=== PATIENT | male | born 1955 | race Caucasian/White ===

== ENCOUNTER 2018-08-27 21:12 | Emergency (ER) | payer BC, OTHER ==
[~2018-08-27] VITALS: Ht 170.2 cm; Wt 95.2 kg
[~2018-08-27 21:12] MED LIST: CIPR500 PO; Flomax0.4 MG PO; Norco 5-325 Ta1 EACH PO; OXYACE5T PO; PROM25 PO; RXOXYACE PO
[2018-08-27 21:57] LABS: BASOPHILS ABSOLUTE AUTO 0.03 K/mm3 (0.00-0.23); BASOPHILS PERCENT AUTO 0 % (0-2); EOSINOPHILS ABSOLUTE AUTO 0.08 K/mm3 (0.00-0.68); EOSINOPHILS PERCENT AUTO 1 % (0-6); Hematocrit 47.9 % (37.0-53.0); Hemoglobin 16.4 g/dL (13.5-17.5); IMMATURE GRAN ABSOLUTE AUTO 0.01 K/mm3 (0.00-0.10); IMMATURE GRAN PERCENT AUTO 0 % (0-1); LYMPHOCYTES ABSOLUTE AUTO 1.66 K/mm3 (0.84-5.20); LYMPHOCYTES PERCENT AUTO 25 % (21-46); MONOCYTES ABSOLUTE AUTO 0.52 K/mm3 (0.16-1.47); MONOCYTES PERCENT AUTO 8 % (4-13); Mean Corpuscular HGB 32.7 pg (26.0-34.0); Mean Corpuscular HGB Conc 34.2 g/dL (31.5-36.5); Mean Corpuscular Volume 95 fL (80-100); NEUTROPHILS ABSOLUTE AUTO 4.44 K/mm3 (1.96-9.15); NEUTROPHILS PERCENT AUTO 66 % (41-73); Platelet Count 261 K/mm3 (150-400); RDW Standard Deviation 42.4 fL (35.1-46.3); Red Blood Cell Count 5.02 M/mm3 (4.30-5.90); White Blood Cell Count 6.74 K/mm3 (4.00-11.30)
[2018-08-27 22:15] LABS: Alanine Aminotransfer (ALT/SGP 35 U/L (12-78); Albumin/Globulin Ratio 1.1 (0.8-1.8); Alk Phos 101 U/L (50-136); Anion Gap 9 mmol/L (6-16); Aspartate Aminotrans (AST/SGOT 18 U/L (12-37); Bilirubin, Total 0.6 mg/dL (0.1-1.0); Blood Urea Nitrogen 20 mg/dL (8-24); Bun/Creatinine Ratio 23.9 (12.0-20.0); CO2, Blood 23 mmol/L (21-32); Calcium, Blood 8.4 mg/dL (8.5-10.1); Chloride, Blood 108 mmol/L (98-108); Creatinine, Blood 0.84 mg/dL (0.60-1.20); Globulin, Blood 3.8 g/dL (2.2-4.0); Glomerular Filtration Rate >60 (60-); Glucose, Blood 106 mg/dL (70-99); Potassium, Blood 3.8 mmol/L (3.5-5.5); Sodium, Blood 140 mmol/L (136-145); Total Protein, Blood 7.8 g/dL (6.4-8.2)
== END 2018-08-27 22:55 | disposition home or self-care (01) ==
LOC: ER 21:12
PROVIDERS: Emergency Medicine
DX: R20.2 Paresthesia of skin (principal); Z79.899 Other long term (current) drug therapy
CPT/HCPCS: 80053; 85025; 93005; 93010; 99284-25

== ENCOUNTER 2019-12-28 20:13 | Inpatient (IN) | payer BC, OTHER ==
[~2019-12-28] VITALS: Ht 170.2 cm; Wt 90.9 kg
[2019-12-28 20:49] LABS: BASOPHILS ABSOLUTE AUTO 0.02 K/mm3 (0.00-0.23); BASOPHILS PERCENT AUTO 0 % (0-2); EOSINOPHILS ABSOLUTE AUTO 0.04 K/mm3 (0.00-0.68); EOSINOPHILS PERCENT AUTO 1 % (0-6); Hematocrit 49.4 % (37.0-53.0); Hemoglobin 16.4 g/dL (13.5-17.5); IMMATURE GRAN ABSOLUTE AUTO 0.03 K/mm3 (0.00-0.10); IMMATURE GRAN PERCENT AUTO 0 % (0-1); LYMPHOCYTES ABSOLUTE AUTO 1.25 K/mm3 (0.84-5.20); LYMPHOCYTES PERCENT AUTO 15 % (21-46); MONOCYTES ABSOLUTE AUTO 0.71 K/mm3 (0.16-1.47); MONOCYTES PERCENT AUTO 8 % (4-13); Mean Corpuscular HGB 31.8 pg (26.0-34.0); Mean Corpuscular HGB Conc 33.2 g/dL (31.5-36.5); Mean Corpuscular Volume 96 fL (80-100); Mean Platelet Volume 11.6 fL (9.1-12.4); NEUTROPHILS ABSOLUTE AUTO 6.52 K/mm3 (1.96-9.15); NEUTROPHILS PERCENT AUTO 76 % (41-73); Platelet Count 243 K/mm3 (150-400); RDW Coefficient Variation 12.8 % (11.7-14.2); RDW Standard Deviation 45.7 fL (35.1-46.3); Red Blood Cell Count 5.16 M/mm3 (4.30-5.90); White Blood Cell Count 8.57 K/mm3 (4.00-11.30)
[2019-12-28 21:09] LABS: Alanine Aminotransfer (ALT/SGP 45 U/L (12-78); Albumin/Globulin Ratio 1.1 (0.8-1.8); Alk Phos 100 U/L (50-136); Anion Gap 11 mmol/L (6-16); Aspartate Aminotrans (AST/SGOT 28 U/L (12-37); Bilirubin, Total 0.5 mg/dL (0.1-1.0); Blood Urea Nitrogen 21 mg/dL (8-24); Bun/Creatinine Ratio 24.7 (12.0-20.0); CO2, Blood 23 mmol/L (21-32); Calcium, Blood 8.7 mg/dL (8.5-10.1); Chloride, Blood 105 mmol/L (98-108); Creatinine, Blood 0.85 mg/dL (0.60-1.20); Globulin, Blood 3.8 g/dL (2.2-4.0); Glomerular Filtration Rate >60 (60-); Glucose, Blood 115 mg/dL (70-99); Potassium, Blood 3.8 mmol/L (3.5-5.5); Sodium, Blood 139 mmol/L (136-145); Total Protein, Blood 7.8 g/dL (6.4-8.2); Troponin I 0.072 ng/mL (0.000-0.040)
[2019-12-28 22:37] LABS: International Normalized Ratio 0.95; Prothrombin Time Results 10.2 Sec (9.7-11.5)
[2019-12-28 23:03] LABS: Magnesium, Blood 2.6 mg/dL (1.6-2.4)
--- NOTE | 2019-12-29 01:32 | NUR ---
PATIENT IS A NEW ADMIT FROM THE ED. AXOX 4 AND SELF TRANSFER FROM [facility] TO BED. HEPARIN INFUSING FROM ED AT 20.8 ml/HR MANAGED BY PHARMACY. DENIES CHEST PAIN OR CHEST PRESSURE. TELEMETRY PLACED AND TECH REPORTS NSR W/PVC AT 87. DENIES N/V AND SOB. ON ROOM AIR. PATIENT ORIENTED TO ROOM AND CALL LIGHT SYSTEM. NPO AFTER 23:59 12/28/19. NS STARTED AT 75mL/HR. CALL LIGHT IN REACH. WILL CONTINUE TO MONITOR.
--- NOTE | 2019-12-29 02:50 | NUR ---
PATIENT SLEEPING SINCE ADMIT. NS INFUSING AT 75mL/HR. HEPARIN INFUSING AT 20.8 mL/HR. CALL LIGHT IN REACH.
[2019-12-29 02:59] LABS: BASOPHILS ABSOLUTE AUTO 0.02 K/mm3 (0.00-0.23); BASOPHILS PERCENT AUTO 0 % (0-2); EOSINOPHILS PERCENT AUTO 1 % (0-6); Hematocrit 46.5 % (37.0-53.0); Hemoglobin 15.4 g/dL (13.5-17.5); IMMATURE GRAN ABSOLUTE AUTO 0.03 K/mm3 (0.00-0.10); IMMATURE GRAN PERCENT AUTO 0 % (0-1); LYMPHOCYTES ABSOLUTE AUTO 1.87 K/mm3 (0.84-5.20); LYMPHOCYTES PERCENT AUTO 26 % (21-46); MONOCYTES ABSOLUTE AUTO 0.59 K/mm3 (0.16-1.47); MONOCYTES PERCENT AUTO 8 % (4-13); Mean Corpuscular HGB 31.9 pg (26.0-34.0); Mean Corpuscular HGB Conc 33.1 g/dL (31.5-36.5); Mean Corpuscular Volume 96 fL (80-100); Mean Platelet Volume 11.8 fL (9.1-12.4); NEUTROPHILS ABSOLUTE AUTO 4.49 K/mm3 (1.96-9.15); NEUTROPHILS PERCENT AUTO 63 % (41-73); Platelet Count 218 K/mm3 (150-400); RDW Coefficient Variation 12.8 % (11.7-14.2); RDW Standard Deviation 46.1 fL (35.1-46.3); Red Blood Cell Count 4.83 M/mm3 (4.30-5.90)
[2019-12-29 03:27] LABS: Alanine Aminotransfer (ALT/SGP 39 U/L (12-78); Albumin, Blood 3.6 g/dL (3.4-5.0); Albumin/Globulin Ratio 1.1 (0.8-1.8); Alk Phos 101 U/L (50-136); Anion Gap 6 mmol/L (6-16); Aspartate Aminotrans (AST/SGOT 27 U/L (12-37); Bilirubin, Total 0.4 mg/dL (0.1-1.0); Blood Urea Nitrogen 24 mg/dL (8-24); Bun/Creatinine Ratio 28.2 (12.0-20.0); CHOL/HDL RATIO 5.4; CO2, Blood 26 mmol/L (21-32); Calcium, Blood 8.4 mg/dL (8.5-10.1); Chloride, Blood 107 mmol/L (98-108); Cholesterol 249 mg/dL (50-200); Creatinine, Blood 0.85 mg/dL (0.60-1.20); Globulin, Blood 3.4 g/dL (2.2-4.0); Glomerular Filtration Rate >60 (60-); Glucose, Blood 131 mg/dL (70-99); HDL Cholesterol 46 mg/dL (>39); LDL/HDL RATIO 3.4; Low Density Lipoprotein Chol 156 mg/dL (0-110); Potassium, Blood 3.7 mmol/L (3.5-5.5); Sodium, Blood 139 mmol/L (136-145); Triglycerides 237 mg/dL (30-160); Very Low Density Lipoprot Chol 47 mg/dL (6-32)
--- NOTE | 2019-12-29 04:00 | NUR ---
LAB: TROPONIN 1.170 AND LAST 0.072. HOSPITALIST DR BENZ NOTIFIED AND ASKED IF PATIENT IS ON HEPARIN DRIP. HEPARIN INFUSING AT 20.8 mL/HR MANAGED BY PHARMACY. DR BENZ ASK IF PATIENT HAVING CHEST PAIN OR CHEST PRESSURE. PATIENT SLEEPING AT THIS TIME. REPORTS TO CONTINUE TO MONITOR. NPO. ANGIOGRAM IN AM.
--- NOTE | 2019-12-29 04:23 | NUR ---
SHIFT SUMMARY PATIENT HAD cH TROPONIN 1.170 UP FROM 0.072 (SEE NOTE). AXOX 4 AND INDEPENDENT IN ROOM. DENIES CHEST PAIN, CHEST PRESSURE, SOB, AND N/V. PIV REMAINS INTACT. HEPARIN INFUSING AT 20.8 mL/HR MANAGED BY PHARMACY. NPO AFTER 23:59 12/28/19. ANGIOGRAM IN AM. NS INFUSING AT 75mL/HR. AUDIOVISUAL TECH REPORTS NSR W/PVC AT 87. [place] LEAVING BILATERAL HEARING AIDES AT HOME. REPORTS HAVING A FEW DRINKS DAILY SUCH BEER AND 4-5 BEERS ON FRIDAYS WITH A COUPLE OF SHOTS. VSS/AFEBRILE. COOPERATIVE WITH CARE. CALL LIGHT IN REACH. BED IN LOWEST POSITION. WILL CONTINUE TO [place] UNTIL DAY SHIFT NURSE ASSUMES CARE.
--- NOTE | 2019-12-29 10:46 | NUR ---
PT IS A&O, INDEPENDENT IN AND TO [facility]. ADMITTED FOR NSTEMI; ON HEPARIN DRIP. DENIED CP OR CHEST PRESSURE TO PRESENT THIS SHIFT. PT NPO FOR ANGIO THIS AM. DR PIERRE HERE TO SEE PT AND RETURNED AGAIN TO TALK WITH PT AND . LAB CALLED WITH CRITICAL RESULT ON LAST TROPONIN, WHILE DR PIERRE IN WITH PT; NOTIFIED. PHARMACY CALLED TO REPORT NEW ORDERS R/T HEPARIN DRIP AND BOLUS; SEE EMAR. 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 PT TAKEN VIA W/C WITH AT SIDE.
--- NOTE | 2019-12-29 18:28 | NUR ---
SHIFT SUMMARY RECEIVED BEDSIDE REPORT FROM [facility] AND TELEPHONE REPORT FROM J[facility]. PT ORIENTED TO ROOM AND CALL LIGHT. EDUCATED RIGHT ARM ACTIVITY RESTRICTIONS. PT A&Ox4; [place]. PER TELE SINUS BETTY TO SINUS RHYTHM WITH PVC. PT SPO2 >90% ON RA. PT DENIES PAIN, CHEST PAIN/PRESSURE, NAUSEA, DIZZINESS, SOB AND NUMB/TINGLING. RIGHT RADIAL SITE WITH TR BAND IN PLACE; RECOVERING PER POLICY. NO BLEEDING, BRUISING OR HEMATOMA NOTED. ELEVATED BP. NO OTHER ACUTE CHANGES NOTED. WILL CONTINUE TO MONITOR UNITL REPORT GIVEN TO ONCOMING RN.
[2019-12-30 04:19] LABS: BASOPHILS ABSOLUTE AUTO 0.02 K/mm3 (0.00-0.23); BASOPHILS PERCENT AUTO 0 % (0-2); EOSINOPHILS ABSOLUTE AUTO 0.11 K/mm3 (0.00-0.68); EOSINOPHILS PERCENT AUTO 1 % (0-6); Hematocrit 48.8 % (37.0-53.0); Hemoglobin 16.2 g/dL (13.5-17.5); IMMATURE GRAN ABSOLUTE AUTO 0.03 K/mm3 (0.00-0.10); IMMATURE GRAN PERCENT AUTO 0 % (0-1); LYMPHOCYTES ABSOLUTE AUTO 1.68 K/mm3 (0.84-5.20); LYMPHOCYTES PERCENT AUTO 21 % (21-46); MONOCYTES ABSOLUTE AUTO 0.72 K/mm3 (0.16-1.47); MONOCYTES PERCENT AUTO 9 % (4-13); Mean Corpuscular HGB 32.1 pg (26.0-34.0); Mean Corpuscular HGB Conc 33.2 g/dL (31.5-36.5); Mean Corpuscular Volume 97 fL (80-100); Mean Platelet Volume 11.6 fL (9.1-12.4); NEUTROPHILS ABSOLUTE AUTO 5.29 K/mm3 (1.96-9.15); NEUTROPHILS PERCENT AUTO 67 % (41-73); Platelet Count 209 K/mm3 (150-400); RDW Coefficient Variation 12.8 % (11.7-14.2); RDW Standard Deviation 45.7 fL (35.1-46.3); Red Blood Cell Count 5.04 M/mm3 (4.30-5.90); White Blood Cell Count 7.85 K/mm3 (4.00-11.30)
[2019-12-30 04:48] LABS: Anion Gap 6 mmol/L (6-16); Blood Urea Nitrogen 13 mg/dL (8-24); Bun/Creatinine Ratio 15.8 (12.0-20.0); CO2, Blood 24 mmol/L (21-32); Calcium, Blood 8.6 mg/dL (8.5-10.1); Chloride, Blood 105 mmol/L (98-108); Creatinine, Blood 0.82 mg/dL (0.60-1.20); Glomerular Filtration Rate >60 (60-); Glucose, Blood 106 mg/dL (70-99); Potassium, Blood 3.9 mmol/L (3.5-5.5); Sodium, Blood 135 mmol/L (136-145)
[2019-12-30 05:23] LABS: Troponin I 0.688 ng/mL (0.000-0.040)
--- NOTE | 2019-12-30 05:43 | NUR ---
TR BAND FULLY RECOVERED, OPSITE IN PLACE AT @2030 ON 12/30/19. NO NEW BLEEDING NOTED FROM SITE. SLIGHT HEMATOMA NOTED ABOVE SIGHT. ARMBOARD IN PLACE.
--- NOTE | 2019-12-30 05:44 | NUR ---
END OF SHIFT SUMMARY NO ACUTE CHNAGES THIS SHIFT. VSS, HTN NOTED, ASYMPTOMATIC. PT DENIES CP/PRESSURE/DIAPHORRESIS, ETC. R RADIAL ACCESS SITE IS FULLY RECOVERED. NO COMPLICATIONS NOTED. ARMBOARD IN [place]CE. PT HAS BEEN RESTING QUIETLY THIS SHIFT. WILL CONTINUE TO MONITOR UNTIL SHIFT CHANGE.
[2019-12-30] MEDS ORDERED: ASPI81CH PO (11:00)
[2019-12-30] MEDS ORDERED: CLOP75 PO (11:00)
[2019-12-30] MEDS ORDERED: LIPITOR80 MG PO (11:00)
[2019-12-30] MEDS ORDERED: METO25ER PO (11:01)
[2019-12-30] MEDS ORDERED: NITR.4SL SL (11:02)
[2019-12-30] MEDS ORDERED: ENTRESTO 24 MG1 EACH PO (11:20)
--- NOTE | 2019-12-30 13:31 | NUR ---
DISCHARGE SUMMARY PT A&Ox4; CALM AND COOPERATIVE WITH CARE. PT RESTING IN BED DURING SHIFT, UP IN ROOM IND THIS AM. PT DENIES PAIN, CHEST PAIN/PRESSURE, NAUSEA, SOB, DIZZINESS AND NUMB/TINGLING. RIGHT RADIAL SITE; C/D/I, NO BLEEDING OR HEMATOMA NOTED; SMALL AMOUNT OF SHADOWING NOTED AROUND INSERTION SITE; REMAINED STABLE T/O NOC PER REPROT. VSS. DR LEMOS NOTIFIED OF BP THIS AM; PT IS OK TO GO HOME AND DR ORR NOTIFIED OK TO DISCHARGE. NO OTHER ACUTE CHANGES NOTED DURING SHIFT. PT EDUCATED ON ACTIVITY RESTRICTIONS FOR RIGHT ARM AND WHAT TO DO IF IT STARTS BLEEDING; PT EDUCATED ON [employer] CONTRACT. PT EDUCATED ON DISCHARGE INSTRUCTIONS, FOLLOW UP APPOINTMENTS, ESTABLISHING A PCP AND MEDICATIONS. MEDICATIONS CALLED INTO [facility] PER REQUEST. PT LEFT ROOM VIA WHEELCHAIR AT 1212; PT STABLE UPON DISCHARGE.
== END 2019-12-30 12:14 | disposition home or self-care (01) | DRG 247 ==
LOC: ER 20:13 → MEDS 23:42 → PCU 23:52 → MEDS 23:58 → PCU 12-29 11:39
PROVIDERS: Emergency Medicine; Internal Medicine Cardiovascular Disease; Nurse Practitioner Acute Care; Physician Assistant; ADMIT Internal Medicine
PROC: 027034Z Dilation of Coronary Artery, One Artery with Drug-eluting Intraluminal Device, Percutaneous Approach (ICD-10-PCS; principal; 2019-12-29)
PROC: 4A023N7 Measurement of Cardiac Sampling and Pressure, Left Heart, Percutaneous Approach (ICD-10-PCS; 2019-12-29)
PROC: B211YZZ Fluoroscopy of Multiple Coronary Arteries using Other Contrast (ICD-10-PCS; 2019-12-29)
DX: I21.4 Non-ST elevation (NSTEMI) myocardial infarction (principal); I25.10 Atherosclerotic heart disease of native coronary artery without angina pectoris; I25.5 Ischemic cardiomyopathy; Z20.828 Contact with and (suspected) exposure to other viral communicable diseases; F17.220 Nicotine dependence, chewing tobacco, uncomplicated; R73.03 Prediabetes; K21.9 Gastro-esophageal reflux disease without esophagitis; E66.9 Obesity, unspecified; F10.20 Alcohol dependence, uncomplicated; I10 Essential (primary) hypertension; H91.90 Unspecified hearing loss, unspecified ear; E78.5 Hyperlipidemia, unspecified; Z68.34 Body mass index [BMI] 34.0-34.9, adult
CPT/HCPCS: 36415; 71046; 76937; 80048; 80053; 80061; 83036; 83690; 83735; 84443; 84484; 85025; 85347; 85610; 85730; 93005; 93010; 93306; 93458; 96365; 99152; 99153; 99285-25; A9270; A9270-GY; C1725; C1769; C1874; C1887; C1894; C9600; J0461; J1644; J2250; J3010; J7030; Q9967; U0002

== ENCOUNTER 2020-01-01 12:46 | Observation (INO) | payer BC, OTHER ==
[~2020-01-01] VITALS: Ht 170.2 cm; Wt 91.3 kg
[~2020-01-01 12:46] MED LIST changes: +ASPI81CH PO; +CLOP75 PO; +ENTRESTO 24 MG1 EACH PO; +LIPITOR80 MG PO; +METO25ER PO; +NITR.4SL SL
[2020-01-01 13:24] LABS: BASOPHILS ABSOLUTE AUTO 0.01 K/mm3 (0.00-0.23); BASOPHILS PERCENT AUTO 0 % (0-2); EOSINOPHILS ABSOLUTE AUTO 0.03 K/mm3 (0.00-0.68); EOSINOPHILS PERCENT AUTO 0 % (0-6); Hematocrit 46.9 % (37.0-53.0); Hemoglobin 15.6 g/dL (13.5-17.5); IMMATURE GRAN ABSOLUTE AUTO 0.02 K/mm3 (0.00-0.10); IMMATURE GRAN PERCENT AUTO 0 % (0-1); LYMPHOCYTES ABSOLUTE AUTO 1.23 K/mm3 (0.84-5.20); LYMPHOCYTES PERCENT AUTO 15 % (21-46); MONOCYTES ABSOLUTE AUTO 0.68 K/mm3 (0.16-1.47); MONOCYTES PERCENT AUTO 9 % (4-13); Mean Corpuscular HGB 32.6 pg (26.0-34.0); Mean Corpuscular HGB Conc 33.3 g/dL (31.5-36.5); Mean Corpuscular Volume 98 fL (80-100); NEUTROPHILS ABSOLUTE AUTO 6.04 K/mm3 (1.96-9.15); NEUTROPHILS PERCENT AUTO 75 % (41-73); Platelet Count 208 K/mm3 (150-400); RDW Coefficient Variation 12.6 % (11.7-14.2); RDW Standard Deviation 45.5 fL (35.1-46.3); Red Blood Cell Count 4.79 M/mm3 (4.30-5.90); White Blood Cell Count 8.01 K/mm3 (4.00-11.30)
[2020-01-01 13:40] LABS: International Normalized Ratio 0.99; Prothrombin Time Results 10.6 Sec (9.7-11.5)
[2020-01-01 13:54] LABS: Troponin I 0.122 ng/mL (0.000-0.040)
[2020-01-01 14:03] LABS: Alanine Aminotransfer (ALT/SGP 50 U/L (12-78); Albumin, Blood 3.5 g/dL (3.4-5.0); Alk Phos 84 U/L (50-136); Anion Gap 6 mmol/L (6-16); Aspartate Aminotrans (AST/SGOT 32 U/L (12-37); Bilirubin, Total 0.8 mg/dL (0.1-1.0); Blood Urea Nitrogen 25 mg/dL (8-24); Bun/Creatinine Ratio 21.6 (12.0-20.0); CO2, Blood 24 mmol/L (21-32); Calcium, Blood 8.3 mg/dL (8.5-10.1); Chloride, Blood 107 mmol/L (98-108); Creatinine, Blood 1.16 mg/dL (0.60-1.20); Globulin, Blood 3.5 g/dL (2.2-4.0); Glomerular Filtration Rate >60 (60-); Glucose, Blood 125 mg/dL (70-99); Potassium, Blood 4.6 mmol/L (3.5-5.5); Sodium, Blood 137 mmol/L (136-145)
[2020-01-01] MEDS ORDERED: LOW DOSE ASPIRI81 M1 PO (16:02)
--- NOTE | 2020-01-01 18:59 | NUR ---
Shift Summary Received report from Sam RN-ED and patient arrived via w/c at around 1730. A/Ox4, independent, [facility]. Patient had dinner. Tele SB 43's, Dr. Nur was at the bedside and informed of this. Asymptomatic, denies nausea, dizziness, TRIVEDI, lightheadedness. Denies chest pain. RA. Report given to night RN.
--- NOTE | 2020-01-01 19:26 | NUR ---
ASSUMED CARE. PATIENT JUST ARRIVED TO FLOOR NOT TO LONG AGO. ADMIT COMPLETED. AOX3, PLEASANT AND COOPERATIVE. DENIES ANY PAIN OR DISCOMFORT AT THIS TIME. DENIES CHEST PAIN, PALPITATIONS, SOB. DID REPORT PAIN THIS AM THAT DID NOT RESOLVE WITH NITRO. VS WNL, AFEBRILE. LUNG SOUNDS CLEAR. OTHER THEN CARDIAC HIS ASSESSMENT IS BENGIN. TELE REPORTS SINUS BETTY. WILL MONITOR FOR CHANGES. CALL LIGHT IN REACH.
[2020-01-01 21:00] LABS: Creatine Kinase MB 12.4 ng/mL (0.0-3.6)
[2020-01-01 21:03] LABS: Troponin I 1.06 ng/mL (0.000-0.040)
--- NOTE | 2020-01-01 21:17 | NUR ---
2043 RECEIVED CALL FROM SAHARA AT TELEMETRY, PATIENT HAD A RUN OF VTACK 8 BEATS. PATIENT ASYMPTOMATIC. 2101 LAB CALLED REPORTING CRITICAL HIGH TROPONIN OF 1.060. ASYMTOMATIC, VS STABLE 2114. CALLED DR. LINDA AND REPORTED ABOVE INFORMATION. HE SAID HE WILL TAKE A LOOK AT HIS LABS AND MEDS, IF NEEDED HE WILL PUT ORDERS IN.
--- NOTE | 2020-01-01 22:16 | NUR ---
DR. LINDA UP TO SEE THE PATIENT. HE CONTACTED CARDIOLOGY DR. MOREL. EKG ORDERED. CAME BACK ABNORMAL. GAVE RESULTS TO DR. LINDA. PATIENT PLACED NPO FOR POSSIBLE CARDIAC PROCEDURE TOMORROW. DR. LINDA DX WITH NSTEMI. WILL START HEPARIN, GIVE BRILLINTA, THEN TRANSFER TO PCU.
--- NOTE | 2020-01-01 22:55 | NUR ---
PATIENT ARRIVED TO ICU 15, TRANSFER FROM [facility], VIA BED, ABLE TO STAND AND TRANSFER SELF TO BED WITH NO SOB OR CHEST PAIN. PATIENT PLACED ON ICU MONITORS AND ASSISTED WITH CHANGING INTO HOSPITAL GOWN AND PANTS ABLE TO VOID WITHOUT DIFFICULTY. HEPARIN DRIP INFUSING. MONITOR SHOWING SINUS BETTY. RIGHT WRIST HAS CLEAR DRESSING IN PLACE FROM RADIAL ACCESS FROM PREVIOUS STENTING.
[2020-01-01 23:10] LABS: Magnesium, Blood 2.4 mg/dL (1.6-2.4)
--- NOTE | 2020-01-01 23:19 | NUR ---
2230 ADMINISTERED BRILLINTA, HEPRIN IV, AND HEPARIN DRIP. CARMEN HERRERA VERIFIED HEPARIN. PATIENT STILL REPORTING HE IS DOING OK. HE ALREADY CALLED HIS AND INFORMED HER OF THE CHANGE. 2245 REPORT GIVEN TO RUKHSANA IN ICU. 2255 PATIENT TRANSFERRED TO ICU 15 WITH PCU STATUS. PATIENT STILL ASYMPTOMATIC. TELE CALLED AND INFORMED OF TRANSFER.
--- NOTE | 2020-01-01 23:57 | NUR ---
PATIENT HAD APROX 12 SEC RUN OF WIDE IDIOVENTRICULAR TYPE RHYTHM RATE 90'S PERFUSING PER BIOX PLETH. PATIENT CONTINUES TO REST QUIETLY WITH NO COMPLAINTS.
[2020-01-02 04:32] LABS: Hematocrit 47.5 % (37.0-53.0); Hemoglobin 15.5 g/dL (13.5-17.5); Mean Corpuscular HGB 31.8 pg (26.0-34.0); Mean Corpuscular HGB Conc 32.6 g/dL (31.5-36.5); Mean Corpuscular Volume 97 fL (80-100); Mean Platelet Volume 11.4 fL (9.1-12.4); Platelet Count 216 K/mm3 (150-400); RDW Coefficient Variation 12.7 % (11.7-14.2); RDW Standard Deviation 45.5 fL (35.1-46.3); Red Blood Cell Count 4.88 M/mm3 (4.30-5.90); White Blood Cell Count 9.92 K/mm3 (4.00-11.30)
[2020-01-02 05:23] LABS: Anion Gap 7 mmol/L (6-16); Blood Urea Nitrogen 20 mg/dL (8-24); Bun/Creatinine Ratio 23.3 (12.0-20.0); CO2, Blood 23 mmol/L (21-32); CPK Creatine Kinase 349 U/L (39-308); Calcium, Blood 8.7 mg/dL (8.5-10.1); Chloride, Blood 107 mmol/L (98-108); Creatinine, Blood 0.86 mg/dL (0.60-1.20); Glomerular Filtration Rate >60 (60-); Glucose, Blood 112 mg/dL (70-99); Potassium, Blood 3.9 mmol/L (3.5-5.5); Sodium, Blood 137 mmol/L (136-145)
[2020-01-02 05:33] LABS: Creatine Kinase MB 40.7 ng/mL (0.0-3.6); Creatine Kinase MB Index 11.7 (0.0-4.0)
--- NOTE | 2020-01-02 06:20 | NUR ---
SUMMARY PATIENT SLEEPING WHEN UNDISTURBED AWAKENS EASILY TO SLIGHT STIMULI. MONITOR CONTINUES TO SHOW SINUS BETTY WITH PVC'S SEE STRIPS IN CHART. HEPARIN DRIP CONTINUES TITRATED BY PHARMACY ORDERS. NO C/O PAIN, CHEST TIGHTNESS, OR SOB. TROP I CONTINUES TO RISE.
--- NOTE | 2020-01-02 08:35 | NUR ---
ASSUMED CARE OF PT AT 0700. REPORT FROM RUKHSANA HERRERA. PT RESTING IN BED. WAKES c VERBAL STIMULI. DENIES PAIN, SOB OR OTHER SYMPTOMS. FLAT AFFECT. LUNGS CLEAR. VSS. PT PENDING ANGIOGRAM TODAY, DR MOREL ROUNDED THIS AM. PT NPO FOR PROCEDURE. SR ON MONITOR c PVCS, RATE 60-70'S. BP STABLE. HEPARIN INFUSING AT 15 UNITS/KG/HR. SO AT BEDSIDE. WILL CONTINUE TO MONITOR.
--- NOTE | 2020-01-02 17:21 | NUR ---
SHIFT SUMMARY PT TO RESPONDER THIS SHIFT. TWO STENTS PLACED TO RCA. RETURNED AT 1545. TR BAND TO RIGHT RADIAL ACCESS. CURRENTLY DEFLATING AT THIS TIME. SMALL AMOUNT OF SWELLING AND ECCHYMOSIS PROXIMAL TO BAND, AREA MARKED. SOFT, NON TENDER. PT DENIES NUMBNESS OR TINGLING TO EXTREMITY. PT DENIES CHEST PAIN, SOB OR OTHER SYMPTOMS. VSS. WILL CONTINUE TO MONITOR UNTIL REPORT TO ONCOMING NURSE.
--- NOTE | 2020-01-02 18:22 | NUR ---
TR BAND DEFLATED COMPLETELY. LEFT IN PLACE. NO FURTHER BLEEDING OR SWELLING NOTED SINCE ARRIVAL TO UNIT.
--- NOTE | 2020-01-02 19:35 | NUR ---
ASSUMED PT CARE FROM JAVIER HILL PT IS ALERT AND ORIENTED; ABLE TO MAKE NEEDS KNOWN. FLAT EFFECT. R RADIAL SITE HAS A NOTED HEMATOMA THAT IS MARKED; APPROXIMATELY 5-10CM. TR BAND FULLY DEFLATED AT 1820; THEREFORE, REMOVED TR BAND, CLEANSED AREA WITH [employer]LORA PREP AND APPLIED TRANSPARENT DRESSING; NO OOZING NOTED. ARM BOARD IN PLACE. PT ABLE TO VERBALIZE UNDERSTANDING OF WEIGHT BEARING LIMITATIONS TO RIGHT ARM. PT DENIES CHEST PAIN. NOTED TO BE IN A NSR WITH PVC'S. VSS, SEE FLOWSHEET. CALL LIGHT WITHIN REACH; PT IS ABLE TO MAKE HIS NEEDS KNOWN.
--- NOTE | 2020-01-03 07:41 | NUR ---
END OF SHIFT SUMMARY NO SIGNIFICANT CHANGES SINCE LAST ENTRY. PT HAS REMAINED ALERT AND ORIENTED AND ABLE TO MAKE NEEDS KNOWN T/O SHIFT. R RADIAL SITE REMAINS UNCHANGED WITH SAME SIZE, 5-10 CM, HEMATOMA THAT REMAINS MARKED. NO OOZING. DENIES NUMBNESS/TINGLING TO FINGERS. ARM BOARD IN PLACE AND PT ABLE TO VERBALIZE UNDERSTANDING OF NOT BEARING WEIGHT TO RIGHT WRIST/ARM. PT HAS BEEN SINUS BRADYCARDIA TO NSR WITH OCCASIONAL PVC'S. HE ALSO HAD A COUPLE RUNS OF NON-SUSTAINED/ASYMPTOMATIC V TACH. PT DENIES CHEST PAIN T/O SHIFT. ABLE TO MAKE NEEDS KNOWN. REPORT HANDED OFF TO JAVIER CRUZ
--- NOTE | 2020-01-03 07:43 | NUR ---
DR. MOREL IN TO SEE PT. HIS RECOMMENDATIONS ARE FOR PT TO GO HOME. WANTS HIM ON METOPROLOL, ASA, BRILINTA, AND STATIN.
--- NOTE | 2020-01-03 08:11 | NUR ---
DR. CAPONE IN TO SEE PT AND WILL BE DISCHARGING PT. NO QUESTIONS FROM PT. PT SITTING UP EATING BREAKFAST. R RADIAL SITE HAS BRUISING THAT IS FLAT AND ABOUT 5CM IN DIAMETER. SITE WAS MARKED BY PREVIOUS SHIFT AND IS STILL WITHIN THE MARKINGS. ARMBOARD IN PLACE. NO REQUESTS. CALL LIGHT IN REACH.
[2020-01-03] MEDS ORDERED: TICA90TA PO (11:59)
--- NOTE | 2020-01-03 12:37 | NUR ---
PT DISCHARGED PER ORDERS. APPOINTMENT SET UP FOR F/U WITH DR. PIERRE AND RX FOR GREY CALLED TO [facility] IN [place]. EDUCATED ABOUT RADIAL ARTERY ACCESS CARE AND INSTRUCTIONS GIVEN. HERE AND WILL PROVIDE TRANSPORT HOME. PT WHEELED OUT VIA W/C BY MEDICAL TRANSLATOR. NO SIGN OF DISTRESS.
== END 2020-01-03 12:37 | disposition home or self-care (01) ==
LOC: ER 12:46 → MEDS 12:47 → ER 15:59 → ICUW 15:59 → MEDS 15:59 → ICUW 22:52 → MEDS 22:52 → ICUW 23:07
PROVIDERS: Emergency Medicine; ADMIT Internal Medicine
DX: I21.4 Non-ST elevation (NSTEMI) myocardial infarction (principal); T82.855A Stenosis of coronary artery stent, initial encounter; R73.9 Hyperglycemia, unspecified; I25.5 Ischemic cardiomyopathy; I25.10 Atherosclerotic heart disease of native coronary artery without angina pectoris; I11.0 Hypertensive heart disease with heart failure; I50.20 Unspecified systolic (congestive) heart failure; I47.2 Ventricular tachycardia; E78.5 Hyperlipidemia, unspecified; E66.9 Obesity, unspecified; I49.3 Ventricular premature depolarization; F17.220 Nicotine dependence, chewing tobacco, uncomplicated; Y71.8 Miscellaneous cardiovascular devices associated with adverse incidents, not elsewhere classified; Z79.82 Long term (current) use of aspirin; Z79.899 Other long term (current) drug therapy; H91.90 Unspecified hearing loss, unspecified ear
CPT/HCPCS: 36415; 71045; 76937; 80048; 80053; 82550; 82553; 83735; 84484; 85025; 85027; 85347; 85610; 85730; 92978; 93005; 93010; 93454; 96372; 96374; 96375; 96376; 99152; 99153; 99285-25; A9270; A9270-GY; C1725; C1753; C1769; C1874; C1887; C1894; C9600; G0378; J1644; J1650; J2250; J2270; J2405; J3010; J7030; J7040; Q9967

== ENCOUNTER → 2024-07-23 | Outpatient (CLI) | payer MEDICARE, OTHER ==
[~2024-07-23] MED LIST changes: +ALBU90OI INH; +BENZ100A PO; +LOW DOSE ASPIRI81 M1 PO; +SPIR25; +TICA90TA PO
[2024-07-23 12:58] LABS: BASOPHILS ABSOLUTE AUTO 0.02 K/mm3 (0.00-0.23); BASOPHILS PERCENT AUTO 0 % (0-2); EOSINOPHILS ABSOLUTE AUTO 0.05 K/mm3 (0.00-0.68); EOSINOPHILS PERCENT AUTO 1 % (0-6); Hematocrit 44.3 % (37.0-53.0); Hemoglobin 15.2 g/dL (13.5-17.5); IMMATURE GRAN ABSOLUTE AUTO 0.02 K/mm3 (0.00-0.10); IMMATURE GRAN PERCENT AUTO 0 % (0-1); LYMPHOCYTES ABSOLUTE AUTO 1.45 K/mm3 (0.84-5.20); LYMPHOCYTES PERCENT AUTO 23 % (21-46); MONOCYTES ABSOLUTE AUTO 0.57 K/mm3 (0.16-1.47); MONOCYTES PERCENT AUTO 9 % (4-13); Mean Corpuscular HGB 31.4 pg (26.0-34.0); Mean Corpuscular HGB Conc 34.3 g/dL (31.5-36.5); Mean Corpuscular Volume 92 fL (80-100); NEUTROPHILS ABSOLUTE AUTO 4.31 K/mm3 (1.96-9.15); NEUTROPHILS PERCENT AUTO 67 % (41-73); Platelet Count 219 K/mm3 (150-400); RDW Coefficient Variation 12.2 % (11.7-14.2); Red Blood Cell Count 4.84 M/mm3 (4.30-5.90); White Blood Cell Count 6.42 K/mm3 (4.00-11.30)
[2024-07-23 13:07] LABS: Albumin, Blood 3.9 g/dL (3.4-5.0); Bilirubin, Total 0.7 mg/dL (0.1-1.0); Calcium, Blood 9.1 mg/dL (8.5-10.1); Creatinine, Blood 0.88 mg/dL (0.60-1.20); Potassium, Blood 3.9 mmol/L (3.5-5.5); Total Protein, Blood 7.9 g/dL (6.4-8.2)
== END | disposition home or self-care (01) ==
LOC: LAB SHORT 12:53 → LAB 12:53
PROVIDERS: Family Medicine
DX: R10.11 Right upper quadrant pain (principal)
CPT/HCPCS: 80053; 85025